=== PATIENT | female | born 1995 | race Caucasian/White ===

== ENCOUNTER 2019-04-21 07:24 | Emergency (ER) | payer MEDICAID ==
--- NOTE | 2019-04-21 08:18 | EDM.PDOC ---
ED HPI GENERAL MEDICAL PROBLEM - General Chief Complaint: Abdominal Pain Stated Complaint: IUD MAY BE OUT OF PLACE NOTS OF PAIN Time Seen by Provider: 04/21/19 08:15 Source of Information: Reports: Patient History Limitations: Reports: No Limitations - History of Present Illness INITIAL COMMENTS - FREE TEXT/NARRATIVE: PT ARRIVED WITH LOWER ABDOMANAL PAIN WHICH STARTED SUDDENLY LAST NITE. sHE LAID CURLED UP IN A BALL ALL NITE. sHE HAD 2 LOOSE STOOLS. sHE DID EAT SOME FRIED FOODS LAST NITE AND AT FIRST SHE THOUGHT THIS WAS THE CAUSE OF THE PAIN. sHE HAS NO DYSURIA. sHE HAS A MURINA IUD IN AND SHE DOES NOT GET PERIODS Onset: Other ( STARTED LAST NITE SUDDENLY. ) Duration: Hour(s): Location: Reports: Abdomen Associated Symptoms: Reports: Other (PT HAS A TEMP OF 99. ) Lower Abdomen Pain Score (Numeric/FACES): 8 - Related Data Allergies Allergy/AdvReac Type Severity Reaction Status Date / Time No Known Allergies Allergy Verified 04/21/19 07:41 Home Meds: Home Meds NK [No Known Home Meds] 04/21/19 [History] Past Medical History [employer] History: Reports: - Infectious Disease History Infectious Disease History: Reports: Chicken Pox Social & Family History - Tobacco Use Smoking Status *Q: Former Smoker Years of Tobacco use: 3 Packs/Tins Daily: 0.2 Used Tobacco, but Quit: No Second Hand Smoke Exposure: Yes - Caffeine Use Caffeine Use: Reports: Soda - Recreational Drug Use Recreational Drug Use: No ED ROS GENERAL - Review of Systems Review Of Systems: See Below Constitutional: Reports: Fever, Decreased Appetite HEENT: Reports: No Symptoms Respiratory: Reports: No Symptoms Cardiovascular: Reports: No Symptoms Endocrine: Reports: No Symptoms GI/Abdominal: Reports: Abdominal Pain, Diarrhea, Decreased Appetite : Reports: No Symptoms Musculoskeletal: Reports: No Symptoms Skin: Reports: No Symptoms ED EXAM, GI/ABD - Physical Exam Exam: See Below Text/Narrative:: pt arrived with pain in her lower abdoman. She did have 2 loose stools. She has a IUD in place and she does not get periods. Her preg test is neg. Exam Limited By: No Limitations General Appearance: Alert, Anxious, Moderate Distress, Other (pt is rating her pain at a 7-8. ) Ears: Normal TMs Nose: Normal Inspection Throat/Mouth: Normal Inspection Head: Atraumatic Neck: Normal Inspection Respiratory/Chest: No Respiratory Distress Cardiovascular: Regular Rate, Rhythm GI/Abdominal Exam: No Distention, Other (pt is tender in the lower abdoman to palpation.) (Female) Exam: Deferred Rectal (Female) Exam: Deferred Back Exam: Normal Inspection Extremities: Normal Inspection Neurological: Alert, Oriented, Normal Cognition Psychiatric: Normal Affect Course - Vital Signs Last Recorded V/S: Last Vital Signs Temp 36.8 C 04/21/19 13:21 Pulse 58 L 04/21/19 13:21 Resp 16 04/21/19 13:21 BP 99/44 L 04/21/19 13:21 Pulse Ox 98 04/21/19 13:21 - Orders/Labs/Meds Orders: Active Orders 24 hr Category Date Time Status Transvaginal Non OB [US] Stat Exams 04/21/19 08:59 Taken Iopamidol [Isovue-300 (61%)] Med 04/21/19 12:00 Active 100 ml IV . DIRECTED Sodium Chloride 0.9% [Normal Saline] 1,000 ml Med 04/21/19 08:30 Active IV ASDIRECTED Medication Orders Sodium Chloride (Normal Saline) 1,000 mls @ 999 mls/hr IV ASDIRECTED LELIA Last Admin: 04/21/19 08:32 Dose: 999 mls/hr Iopamidol (Isovue-300 (61%)) 100 ml IV . DIRECTED LELIA Stop: 04/21/19 16:00 Last Admin: 04/21/19 12:18 Dose: 100 ml Labs: Laboratory Tests 04/21/19 04/21/19 04/21/19 Range/Units 08:07 08:07 08:11 WBC 8.0 (4.5-11.0) K/uL RBC 3.91 (3.30-5.50) M/uL Hgb 11.7 L (12.0-15.0) g/dL Hct 36.2 (36.0-48.0) % MCV 93 (80-98) fL MCH 30 (27-31) pg MCHC 32 (32-36) % Plt Count 172 (150-400) K/uL Neut % (Auto) 75 H (36-66) % Lymph % (Auto) 15 L (24-44) % [place] % (Auto) 9 H (2-6) % Eos % (Auto) 1 L (2-4) % Baso % (Auto) 0 (0-1) % Sodium (140-148) mmol/L Potassium (3.6-5.2) mmol/L Chloride (100-108) mmol/L Carbon Dioxide (21-32) mmol/L Anion Gap (5.0-14.0) mmol/L BUN (7-18) mg/dL Creatinine (0.6-1.0) mg/dL Est Cr Clr Drug Dosing mL/min Estimated GFR (MDRD) (>60) Glucose (74-106) mg/dL Calcium (8.5-10.1) mg/dL Total Bilirubin (0.2-1.0) mg/dL AST (15-37) U/L ALT (12-78) U/L Alkaline Phosphatase (46-116) U/L C-Reactive Protein 2.09 H (0.0-0.3) mg/dL Total Protein (6.4-8.2) g/dL Albumin (3.4-5.0) g/dL Globulin (2.3-3.5) g/dL Albumin/Globulin Ratio (1.2-2.2) Urine Color Yellow (YELLOW) Urine Appearance Cloudy A (CLEAR) Urine pH 7.5 (5.0-8.0) Ur Specific [place] 1.020 (1.008-1.030) Urine Protein Negative (NEGATIVE) mg/dL Urine Glucose (UA) Negative (NEGATIVE) mg/dL Urine Ketones Negative (NEGATIVE) mg/dL Urine Occult Blood Negative (NEGATIVE) Urine Nitrite Negative (NEGATIVE) Urine Bilirubin Negative (NEGATIVE) Urine Urobilinogen 0.2 (0.2-1.0) EU/dL Ur Leukocyte Esterase Negative (NEGATIVE) Urine RBC Not seen (0-5) Urine WBC Not seen (0-5) Ur Epithelial Cells Moderate Amorphous Sediment Many Urine Bacteria Few Urine Mucus Rare Urine HCG, Qual 04/21/19 04/21/19 Range/Units 08:14 09:18 WBC (4.5-11.0) K/uL RBC (3.30-5.50) M/uL Hgb (12.0-15.0) g/dL Hct (36.0-48.0) % MCV (80-98) fL MCH (27-31) pg MCHC (32-36) % Plt Count (150-400) K/uL Neut % (Auto) (36-66) % Lymph % (Auto) (24-44) % [place] % (Auto) (2-6) % Eos % (Auto) (2-4) % Baso % (Auto) (0-1) % Sodium 140 (140-148) mmol/L Potassium 4.0 (3.6-5.2) mmol/L Chloride 106 (100-108) mmol/L Carbon Dioxide 25 (21-32) mmol/L Anion Gap 8.8 (5.0-14.0) mmol/L BUN 13 (7-18) mg/dL Creatinine 0.7 (0.6-1.0) mg/dL Est Cr Clr Drug Dosing 127.16 mL/min Estimated GFR (MDRD) > 60 (>60) Glucose 98 (74-106) mg/dL Calcium 8.7 (8.5-10.1) mg/dL Total Bilirubin 0.7 (0.2-1.0) mg/dL AST 11 L (15-37) U/L ALT 21 (12-78) U/L Alkaline Phosphatase 61 (46-116) U/L C-Reactive Protein (0.0-0.3) mg/dL Total Protein 7.1 (6.4-8.2) g/dL Albumin 4.1 (3.4-5.0) g/dL Globulin 3.0 (2.3-3.5) g/dL Albumin/Globulin Ratio 1.4 (1.2-2.2) Urine Color (YELLOW) Urine Appearance (CLEAR) Urine pH (5.0-8.0) Ur Specific [place] (1.008-1.030) Urine Protein (NEGATIVE) mg/dL Urine Glucose (UA) (NEGATIVE) mg/dL Urine Ketones (NEGATIVE) mg/dL Urine Occult Blood (NEGATIVE) Urine Nitrite (NEGATIVE) Urine Bilirubin (NEGATIVE) Urine Urobilinogen (0.2-1.0) EU/dL Ur Leukocyte Esterase (NEGATIVE) Urine RBC (0-5) Urine WBC (0-5) Ur Epithelial Cells Amorphous Sediment Urine Bacteria Urine Mucus Urine HCG, Qual Negative Meds: Medications Generic Name Dose Route Start Last Admin Trade Name Freq PRN Reason Stop Dose Admin Sodium Chloride 1,000 mls @ 999 mls/hr 04/21/19 08:30 04/21/19 08:32 Normal Saline IV 999 mls/hr ASDIRECTED LELIA Administration Iopamidol 100 ml 04/21/19 12:00 04/21/19 12:18 Isovue-300 (61%) IV 04/21/19 16:00 100 ml . DIRECTED LELIA Administration Discontinued Medications Generic Name Dose Route Start Last Admin Trade Name Tabitha PRN Reason Stop Dose Admin Hydromorphone HCl 0.5 mg 04/21/19 08:19 04/21/19 08:33 Dilaudid IVPUSH 04/21/19 08:20 0.5 mg ONETIME ONE Administration Hydromorphone HCl 0.5 mg 04/21/19 12:10 04/21/19 12:29 Dilaudid IVPUSH 04/21/19 12:11 0.5 mg ONETIME ONE Administration Sodium Chloride 80 mls @ 3.5 mls/sec 04/21/19 11:59 04/21/19 12:16 Normal Saline IV 04/21/19 12:00 3.5 mls/sec ONETIME ONE Administration Sodium Chloride 10 ml 04/21/19 11:59 04/21/19 12:16 Saline Flush FLUSH 04/21/19 12:00 10 ml ONETIME ONE Administration - Re-Assessments/Exams Free Text/Narrative Re-Assessment/Exam: 04/21/19 09:11 pt has a normal wbc. Her urine is not infected. Her preg test is neg. Her crp is greater than 2. 04/21/19 13:23 pt had a US which revealed a hemmoragic cyst on the rt. Her cat scan also revealed the cyst but was otherwise normal. Departure - Departure Time of Disposition: 13:24 Disposition: Home, Self-Care 01 Condition: Fair Clinical Impression: Hemorrhagic cyst of right ovary - Discharge Information Referrals: PCP,None [Primary Care Provider] - Forms: ED Department Discharge Care Plan Goals: push fluids, lite diet, no work for the next 2 days, percocet 5/325 q6h prn for pain. rtc if pain should get alot worse. - My Orders Last 24 Hours: My Active Orders 04/21/19 08:30 Sodium Chloride 0.9% [Normal Saline] 1,000 ml IV ASDIRECTED 04/21/19 08:59 Transvaginal Non OB [US] Stat 04/21/19 12:00 Iopamidol [Isovue-300 (61%)] 100 ml IV . DIRECTED - Assessment/Plan Last 24 Hours: My Active Orders 04/21/19 08:30 Sodium Chloride 0.9% [Normal Saline] 1,000 ml IV ASDIRECTED 04/21/19 08:59 Transvaginal Non OB [US] Stat 04/21/19 12:00 Iopamidol [Isovue-300 (61%)] 100 ml IV . DIRECTED
[2019-04-21] MEDS ORDERED: HYDROmorphone 0.5 MG/0.5 ML Syringe IVPUSH ONE ×2 (08:19→12:10)
[2019-04-21] MEDS ORDERED: Sodium Chloride 0.9% 1,000 ML IV SCH (08:30)
[2019-04-21] MEDS ORDERED: Sodium Chloride 0.9% 80 ML IV ONE (11:59)
[2019-04-21] MEDS ORDERED: Sodium Chloride 0.9% 10 ML Syringe FLUSH ONE (11:59)
[2019-04-21] MEDS ORDERED: Iopamidol 612 MG/ML 100 ML Bottle IV SCH (12:00)
--- NOTE | 2019-04-21 12:27 | CRLUS ---
INDICATION : Lower abdominal pain TECHNIQUE : Ultrasound of the pelvis. Grayscale and color doppler. Spectral arterial wave forms of the ovaries to blood flow. Endovaginal study to evaluate ovaries and endometrium with transabdominal images. COMPARISON : None IMPRESSION: 1. IUD satisfactory position. 2. Incidental involuting hemorrhagic follicular cyst in the right ovary. 3. Intact spectral arterial waveforms in both ovaries. FINDINGS: Uterus: No mass. Normal variant prominent periuterine vascularity. 8 x 5 x 6 cm. IUD: Satisfactory position. Endometrial thickness: 3 mm. Right ovary: Small hemorrhagic follicular cyst measuring less than 2 cm. Spectral arterial waveform is intact. Left ovary: Unremarkable. Spectral arterial waveform is intact. Cul-de-sac: No free fluid. Dictated by Bradford Pitts MD @ Apr 21 2019 12:23PM Signed by Dr. Bradford Pitts @ Apr 21 2019 12:26PM
--- NOTE | 2019-04-21 13:06 | CRLCT ---
INDICATION: Lower abdominal pain. TECHNIQUE: Volumetric helical scanning of the abdomen and pelvis was performed with 100 cc of Isovue 300 contrast material IV. Coronal and sagittal reconstructions were obtained. COMPARISON: Pelvic ultrasound performed earlier today. FINDINGS: There is no evidence of bowel obstruction or inflammation. No free fluid is demonstrated. The liver is normal in size, shape and attenuation. Low-attenuation about the portal veins is noted and is consistent with edema. This is nonspecific. No bile duct dilation is evident. The spleen is within normal limits. The adrenal glands are unremarkable. The pancreas is within normal limits. The kidneys are unremarkable. No lymphadenopathy is evident. An IUD is present in the uterine cavity and appears to be properly positioned. The uterus is otherwise unremarkable. A 2.5 x 2.1 x 2.0 cm right ovarian cyst noted. The ovaries are otherwise grossly negative. No free fluid is evident. The lung bases are clear. The heart is normal in size. IMPRESSION: 1. 2.5 cm right ovarian cyst. 2. Nonspecific periportal edema. Please note that all CT scans at this facility use dose modulation, iterative reconstruction, and/or weight-based dosing when appropriate to reduce radiation dose to as low as reasonably achievable. Dictated by Francesco Mcginnis MD @ Apr 21 2019 12:57PM Signed by Dr. Francesco Mcginnis @ Apr 21 2019 1:05PM
--- NOTE | 2019-04-22 09:10 | CRLUS ---
Final Report: INDICATION : Lower abdominal pain TECHNIQUE : Ultrasound of the pelvis. Grayscale and color doppler. Spectral arterial wave forms of the ovaries to blood flow. Endovaginal study to evaluate ovaries and endometrium with transabdominal images. COMPARISON : None IMPRESSION: 1. IUD satisfactory position. 2. Incidental involuting hemorrhagic follicular cyst in the right ovary. 3. Intact spectral arterial waveforms in both ovaries. FINDINGS: Uterus: No mass. Normal variant prominent periuterine vascularity. 8 x 5 x 6 cm. IUD: Satisfactory position. Endometrial thickness: 3 mm. Right ovary: Small hemorrhagic follicular cyst measuring less than 2 cm. Spectral arterial waveform is intact. Left ovary: Unremarkable. Spectral arterial waveform is intact. Cul-de-sac: No free fluid. Dictated by Bradford Pitts MD @ Apr 21 2019 12:23PM Signed by: Bradford Pitts MD @04/21/2019 12:26:42 PM (Electronic Signature) MTDD
== END 2019-04-21 13:35 | disposition home or self-care (01) ==
LOC: JP.ED 07:24
DX: N83.201 Unspecified ovarian cyst, right side (principal); Z87.891 Personal history of nicotine dependence
CPT/HCPCS: 36415; 74177; 76830; 76856; 80053; 81001; 81025; 85025; 86140; 96361; 96374; 96376; 99284; J1170; J7030; Q9967

== ENCOUNTER 2019-08-06 16:17 | Emergency (ER) | payer MEDICAID ==
--- NOTE | 2019-08-06 16:56 | EDM.PDOC ---
ED HPI GENERAL MEDICAL PROBLEM - General Chief Complaint: Cardiovascular Problem Stated Complaint: CHEST PAIN AND SOB ON LEFT SIDE Time Seen by Provider: 08/06/19 16:50 Source of Information: Reports: Patient, Old Records History Limitations: Reports: No Limitations - History of Present Illness INITIAL COMMENTS - FREE TEXT/NARRATIVE: 23 yo female awoke today with sternal pain. Denies fever, or leg swelling/calf pain. No hx of the same. Breathing deeply or coughing increases her pain. No self tx. 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) (none) - Related Data Allergies Allergy/AdvReac Type Severity Reaction Status Date / Time No Known Allergies Allergy Verified 04/21/19 07:41 Home Meds: Home Meds NK [No Known Home Meds] 04/21/19 [History] Past Medical History [employer] WORK[employer] History: Reports: - Infectious Disease History Infectious Disease History: Reports: Chicken Pox Social & Family History - Caffeine Use Caffeine Use: Reports: Soda ED ROS GENERAL - Review of Systems Review Of Systems: See Below Constitutional: Reports: No Symptoms HEENT: Reports: No Symptoms Respiratory: Reports: Pleuritic Chest Pain (sternal area, on L side of sternum. ) Cardiovascular: Reports: Chest Pain (sternal). Denies: Claudication, Dyspnea on Exertion, Edema, Lightheadedness, Orthopnea, Palpitations, Syncope GI/Abdominal: Reports: No Symptoms Skin: Reports: No Symptoms ED EXAM, GENERAL - Physical Exam Exam: See Below Exam Limited By: No Limitations General Appearance: Alert, WD/WN, No Apparent Distress Eye Exam: Bilateral Eye: Normal Inspection Ears: Normal Canal, Hearing Grossly Normal Ear Exam: Bilateral Ear: Auricle Normal, Canal Normal Nose: Normal Inspection, No Blood Throat/Mouth: Normal Inspection, Normal Lips, Normal Voice, No Airway Compromise Head: Atraumatic, Normocephalic Neck: Normal Inspection Respiratory/Chest: No Respiratory Distress, Lungs Clear, Normal Breath Sounds, No Accessory Muscle Use, Other (tender on palpation along the L edge of the sternum). No: Chest Non-Tender Cardiovascular: Regular Rate, Rhythm, No Edema GI/Abdominal: Normal Bowel Sounds, Soft, Non-Tender, No Distention Neurological: Alert, Oriented, CN II-XII Intact, Normal Cognition, No Motor/ Sensory Deficits Psychiatric: Normal Affect, Normal Mood Skin Exam: Warm, Dry, Intact, Normal Color, No Rash EKG INTERPRETATION EKG Date: 08/06/19 Time: 16:45 Rhythm: NSR Rate (Beats/Min): 70 [place]: Normal P-Wave: Present QRS: Normal ST-T: Normal QT: Normal Comparison: NA - No Prior EKG Course - Vital Signs Last Recorded V/S: Last Vital Signs Temp 36.0 C L 08/06/19 16:56 Pulse 69 08/06/19 16:56 Resp 16 08/06/19 16:56 BP 112/59 L 08/06/19 16:56 Pulse Ox 97 08/06/19 16:56 - Orders/Labs/Meds Orders: Active Orders 24 hr Category Date Time Status EKG Documentation Completion [RC] ASDIRECTED Care 08/06/19 16:55 Active Acetaminophen [Tylenol Extra Strength] Med 08/06/19 17:02 Once 1,000 mg PO ONETIME ONE Ketorolac [Toradol] Med 08/06/19 17:02 Once 60 mg IM ONETIME ONE EKG 12 Lead [EK] Routine Ther 08/06/19 16:54 Ordered Departure - Departure Time of Disposition: 17:20 Disposition: Home, Self-Care 01 Condition: Good Clinical Impression: Costochondritis, acute Instructions: Costochondritis, [id number] Referrals: PCP,None [Primary Care Provider] - Forms: ED Department Discharge Additional Instructions: Take Naproxen sodium 550 mg every 12h hrs with food until your pain is gone. You may add acetaminophen up to 1000 mg every 6 hrs for pain relief. Recheck in the clinic next week unless your symptoms have resolved. Sepsis Event Note - Focused Exam Vital Signs: Vital Signs Temp Pulse Resp BP Pulse Ox 08/06/19 16:56 36.0 C L 69 16 112/59 L 97 Date Exam was Performed: 08/06/19 Time Exam was Performed: 17:03 - My Orders Last 24 Hours: My Active Orders 08/06/19 16:54 EKG 12 Lead [EK] Routine 08/06/19 16:55 EKG Documentation Completion [RC] ASDIRECTED 08/06/19 17:02 Acetaminophen [Tylenol Extra Strength] 1,000 mg PO ONETIME ONE Ketorolac [Toradol] 60 mg IM ONETIME ONE - Assessment/Plan Last 24 Hours: My Active Orders 08/06/19 16:54 EKG 12 Lead [EK] Routine 08/06/19 16:55 EKG Documentation Completion [RC] ASDIRECTED 08/06/19 17:02 Acetaminophen [Tylenol Extra Strength] 1,000 mg PO ONETIME ONE Ketorolac [Toradol] 60 mg IM ONETIME ONE
[2019-08-06] MEDS ORDERED: Acetaminophen 500 MG Tab PO ONE (17:02)
[2019-08-06] MEDS ORDERED: Ketorolac 60 MG/2 ML SDV IM ONE (17:02)
== END 2019-08-06 17:40 | disposition home or self-care (01) ==
LOC: JP.ED 16:17
DX: M94.0 Chondrocostal junction syndrome [Tietze] (principal)
CPT/HCPCS: 93005; 96372; 99285; A9270; J1885; 93010; 99283